=== PATIENT | female | born 2000 | race Two or more races ===

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

== ENCOUNTER 2021-12-24 09:21 | Emergency (ER) | payer OTHER ==
[2021-12-24 10:07] VITALS: BP 105/59; PULSE 78; RESP 18; TEMP 98; BMI 37.5
[2021-12-24] MEDS ORDERED: SODIUM CHLORIDE 1,000 ML IV STA (10:49)
[2021-12-24 12:14] LABS: BASO % 0.9 % (0-2.0); EOS % 2.3 % (0-4.5); HEMATOCRIT 41.3 % (32.4-45.2); HEMOGLOBIN 13.8 GM/dL (10.7-15.3); LYMPH % 30.8 % (8-40); MCH 27.8 pg (25.7-33.7); MCHC 33.4 g/dl (32.0-36.0); MEAN CELL VOLUME 83.1 fl (80-96); MONO % 6.7 % (3.8-10.2); NEUT % 59.3 % (42.8-82.8); PLATELET COUNT 337 10^3/uL (134-434); RBC 4.97 M/mm3 (3.60-5.2); RDW 14.3 % (11.6-15.6); WHITE BLOOD COUNT 5.7 K/mm3 (4.0-10.0)
[2021-12-24 12:36] LABS: ALBUMIN 4.2 g/dl (3.4-5.0); BLOOD UREA NITROGEN 8.4 mg/dL (7-18); CALCIUM 9.6 mg/dL (8.5-10.1)
[2021-12-24 12:39] LABS: CREATININE 0.7 mg/dL (0.55-1.3)
[2021-12-24 12:40] LABS: EPI CELLS >36 /uL (0-25.1); HYALINE CASTS 20 /uL (0-3.1); URINE APPEARANCE CLOUDY; URINE BACTERIA 533 /uL (0-1359); URINE BILIRUBIN NEGATIVE (NEGATIVE); URINE COLOR DK YELLOW; URINE GLUCOSE (UA) NEGATIVE (NEGATIVE); URINE KETONE TRACE (NEGATIVE); URINE LEUK ESTERASE 1+ (NEGATIVE); URINE NITRITE NEGATIVE (NEGATIVE); URINE PROTEIN 1+ (NEGATIVE); URINE RBC 9 /uL (0-23.9); URINE WBC 79 /uL (0-25.8)
[2021-12-24 12:41] LABS: BILIRUBIN,TOTAL 0.5 mg/dL (0.2-1); TOT PROT 7.7 g/dl (6.4-8.2)
== END 2021-12-24 14:00 | disposition home or self-care (01) ==
LOC: JER 09:21
PROC: 3E0337Z Introduction of Electrolytic and Water Balance Substance into Peripheral Vein, Percutaneous Approach (ICD-10-PCS; principal; 2021-12-24)
DX: K52.9 Noninfective gastroenteritis and colitis, unspecified (principal); R19.7 Diarrhea, unspecified
CPT/HCPCS: 36415; 80053; 81003; 83690; 84703; 85025; 99284-25; C9803-CS; U0003; U0005

== ENCOUNTER 2022-03-04 17:50 | Emergency (ER) | payer OTHER ==
[2022-03-04 18:19] VITALS: BP 114/62; PULSE 98; RESP 19; TEMP 98.5; BMI 21.4
== END 2022-03-04 19:16 | disposition home or self-care (01) ==
LOC: JER 17:50
DX: J02.9 Acute pharyngitis, unspecified (principal)
CPT/HCPCS: 87651; 99283-25

== ENCOUNTER 2022-09-23 17:49 | Emergency (ER) | payer OTHER ==
[2022-09-23 17:59] VITALS: BP 126/83; PULSE 74; RESP 20; TEMP 98; BMI 37.0
[2022-09-23] MEDS ORDERED: predniSONE 20 MG TABLET (UD) PO ONE (18:58)
[2022-09-23] MEDS ORDERED: LORATADINE 10 MG TABLET PO ONE (18:59)
[2022-09-23] MEDS ORDERED: ALBUTEROL SO4 2.5/IPRATROPIUM 0.5 INH SOL 3 ML VIAL.NEB. NEB ONE (20:37)
[2022-09-23] MEDS ORDERED: predniSONE 20 MG TABLET (UD) ONE (20:38)
[2022-09-23] MEDS: ALBUTEROL SO4 2.5/IPRATROPIUM 0.5 INH SOL 3 ML VIAL.NEB. NEB SCH (20:38)
[2022-09-23] MEDS ORDERED: LORATADINE 10 MG TABLET ONE (20:38)
== END 2022-09-23 21:32 | disposition home or self-care (01) ==
LOC: JER 17:49
PROC: 3E0F7GC Introduction of Other Therapeutic Substance into Respiratory Tract, Via Natural or Artificial Opening (ICD-10-PCS; principal; 2022-09-23)
DX: J45.998 Other asthma (principal); J30.1 Allergic rhinitis due to pollen; R05.1 Acute cough; R07.0 Pain in throat; H57.89 Other specified disorders of eye and adnexa; R07.89 Other chest pain; Z20.822 Contact with and (suspected) exposure to COVID-19
CPT/HCPCS: 0241U-QW; 99283-25

== ENCOUNTER 2023-09-11 11:09 | Emergency (ER) | payer OTHER ==
[2023-09-11 11:16] VITALS: BP 100/61; PULSE 82; RESP 18; TEMP 98; BMI 39.0
[2023-09-11] MEDS ORDERED: METOCLOPRAMIDE HCL INJECTION 10 MG/2 ML VIAL ONE (12:51)
[2023-09-11] MEDS ORDERED: KETOROLAC TROMETHAMINE 30 MG/1 ML VIAL ONE (12:51)
[2023-09-11] MEDS: KETOROLAC TROMETHAMINE 30 MG/1 ML VIAL IVPUSH ONE (12:59)
[2023-09-11] MEDS: SODIUM CHLORIDE 1,000 ML IV STA (12:59)
[2023-09-11] MEDS: METOCLOPRAMIDE HCL INJECTION 10 MG/2 ML VIAL IVPB ONE (12:59)
== END 2023-09-11 15:48 | disposition home or self-care (01) ==
LOC: JER 11:09
PROC: 3E0333Z Introduction of Anti-inflammatory into Peripheral Vein, Percutaneous Approach (ICD-10-PCS; principal; 2023-09-11)
PROC: 3E033GC Introduction of Other Therapeutic Substance into Peripheral Vein, Percutaneous Approach (ICD-10-PCS; 2023-09-11)
PROC: 3E0337Z Introduction of Electrolytic and Water Balance Substance into Peripheral Vein, Percutaneous Approach (ICD-10-PCS; 2023-09-11)
DX: R51.9 Headache, unspecified (principal); R11.2 Nausea with vomiting, unspecified; R42 Dizziness and giddiness; F07.81 Postconcussional syndrome
CPT/HCPCS: 99284-25

== ENCOUNTER 2023-09-17 22:44 | Emergency (ER) | payer OTHER ==
[2023-09-17 23:08] VITALS: BMI 37.0
[2023-09-18] MEDS ORDERED: ACETAMINOPHEN 325 MG TABLET (FP) ONE (01:22)
[2023-09-18] MEDS: ACETAMINOPHEN 325 MG TABLET (FP) PO ONE (01:52)
[2023-09-18 01:53] VITALS: BP 108/72; PULSE 89; RESP 17; TEMP 97.9
[2023-09-18 02:24] LABS: THROAT:GRP A STREP NOT DETECTED (NOTDETECTED)
== END 2023-09-18 03:50 | disposition home or self-care (01) ==
LOC: JER 22:44
DX: J06.9 Acute upper respiratory infection, unspecified (principal); R05.9 Cough, unspecified; R09.81 Nasal congestion; J02.9 Acute pharyngitis, unspecified; Z20.822 Contact with and (suspected) exposure to COVID-19
CPT/HCPCS: 0241U-QW; 87651; 99283-25

== ENCOUNTER 2023-12-02 23:33 | Emergency (ER) | payer OTHER ==
[2023-12-02 23:39] VITALS: BP 118/82; PULSE 88; RESP 16; TEMP 97.8; BMI 42.0
[2023-12-03 00:50] LABS: EPI CELLS 26 /uL (0-25.1); HYALINE CASTS 1 /uL (0-3.1); URINE APPEARANCE CLEAR; URINE BACTERIA 294 /uL (0-1359); URINE BILIRUBIN NEGATIVE (NEGATIVE); URINE COLOR YELLOW; URINE GLUCOSE (UA) NEGATIVE (NEGATIVE); URINE KETONE TRACE (NEGATIVE); URINE LEUK ESTERASE NEGATIVE (NEGATIVE); URINE NITRITE NEGATIVE (NEGATIVE); URINE PROTEIN NEGATIVE (NEGATIVE); URINE RBC 31 /uL (0-23.9); URINE UROBILINOGEN 0.2 mg/dL (0.2-1.0); URINE WBC 26 /uL (0-25.8)
[2023-12-03] MEDS ORDERED: SULFAMETHOXAZOLE/TRIMETHOPRIM 800MG/160MG D.S. TABLET ONE (02:03)
[2023-12-03] MEDS: SULFAMETHOXAZOLE/TRIMETHOPRIM 800MG/160MG D.S. TABLET PO ONE (02:06)
== END 2023-12-03 02:10 | disposition home or self-care (01) ==
LOC: JER 23:33
DX: M79.641 Pain in right hand (principal); R30.0 Dysuria; Z20.822 Contact with and (suspected) exposure to COVID-19
CPT/HCPCS: 0241U-QW; 73130-TC-RT-FY; 81003; 99284-25

== ENCOUNTER 2023-12-06 14:39 | Emergency (ER) | payer OTHER ==
[2023-12-06 14:48] VITALS: BP 100/58; PULSE 95; RESP 20; TEMP 97.7; BMI 64.7
== END 2023-12-06 16:29 | disposition home or self-care (01) ==
LOC: JER 14:39
DX: U07.1 COVID-19 (principal); R19.7 Diarrhea, unspecified; R09.81 Nasal congestion; J02.9 Acute pharyngitis, unspecified; R05.1 Acute cough
CPT/HCPCS: 0241U-QW; 99283-25

== ENCOUNTER 2024-03-10 17:32 | Emergency (ER) | payer OTHER ==
[2024-03-10 17:37] VITALS: BP 104/70; PULSE 94; RESP 17; TEMP 98.2; BMI 39.0
== END 2024-03-10 18:37 | disposition home or self-care (01) ==
LOC: JERFT 17:32
DX: R09.81 Nasal congestion (principal); R19.7 Diarrhea, unspecified; R06.02 Shortness of breath; J06.9 Acute upper respiratory infection, unspecified
CPT/HCPCS: 99283-25

== ENCOUNTER 2024-04-07 15:21 | Emergency (ER) | payer OTHER ==
[2024-04-07 15:56] VITALS: BP 112/73; PULSE 110; RESP 18; TEMP 98.5; BMI 39.0
[2024-04-07 17:14] LABS: BASO % 0.7 % (0-2.0); EOS % 3.5 % (0-4.5); HEMATOCRIT 32.2 % (32.4-45.2); HEMOGLOBIN 10.3 GM/dL (10.7-15.3); LYMPH % 30.5 % (8-40); MCH 25.1 pg (25.7-33.7); MCHC 31.8 g/dl (32.0-36.0); MEAN CELL VOLUME 78.8 fl (80-96); MEAN PLT VOLUME 7.2 fl (7.5-11.1); MONO % 5.5 % (3.8-10.2); NEUT % 59.8 % (42.8-82.8); PLATELET COUNT 364 10^3/uL (134-434); RBC 4.09 M/mm3 (3.60-5.2); RDW 14.6 % (11.6-15.6); WHITE BLOOD COUNT 9.2 K/mm3 (4.0-10.0)
[2024-04-07 17:31] LABS: EPI CELLS 8 /uL (0-25.1); HYALINE CASTS 0 /uL (0-3.1); PH,URINE 6.5 (5.0-8.0); URINE APPEARANCE CLOUDY; URINE BACTERIA 39 /uL (0-1359); URINE BILIRUBIN NEGATIVE (NEGATIVE); URINE COLOR ORANGE; URINE GLUCOSE (UA) NEGATIVE (NEGATIVE); URINE KETONE TRACE (NEGATIVE); URINE LEUK ESTERASE NEGATIVE (NEGATIVE); URINE NITRITE NEGATIVE (NEGATIVE); URINE PROTEIN TRACE (NEGATIVE); URINE RBC 7007 /uL (0-23.9); URINE WBC 23 /uL (0-25.8)
[2024-04-07 17:46] LABS: ALBUMIN 3.8 g/dl (3.4-5.0); BLOOD UREA NITROGEN 19.2 mg/dL (7-18); CALCIUM 8.9 mg/dL (8.5-10.1)
[2024-04-07 17:49] LABS: CREATININE 0.7 mg/dL (0.55-1.3)
[2024-04-07 17:52] LABS: BILIRUBIN,TOTAL 0.3 mg/dL (0.2-1); TOT PROT 7.2 g/dl (6.4-8.2)
== END 2024-04-07 19:42 | disposition home or self-care (01) ==
LOC: JER 15:21
DX: N93.9 Abnormal uterine and vaginal bleeding, unspecified (principal)
CPT/HCPCS: 36415; 76830-TC; 80053; 81003; 84703; 85025; 86850; 86900; 86901; 87086; 99284-25